=== PATIENT | female | born 1945 | race Caucasian/White ===

== ENCOUNTER 2017-01-02 08:16 | Outpatient (CLI) | payer OTHER ==
[~2017-01-02 08:16] MED LIST: AMLODIPINE BESYL5 MG PO; ASPIRIN EC81 MG PO; ENTERIC COATED325 M1 PO; FERROUS SULFAT324 MG PO; FIBE1 PO; FLONASE AL50 MCG/ACT; HYDROXYZINE PAM25 MG PO; LIDODERM5 % TOP; LISINOPRIL/HYDR1 TA1; LISINOPRIL/HYDR1 TA2 PO; LOVASTATIN20 MG PO; OXYCODONE/ACETA1 TA1 PO; VITAMIN B121000 CR PO; VITAMIN C500 M1 PO
--- NOTE | 2017-01-02 16:04 | DIAGNOSTIC IMAGING REPORT ---
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 Left knee pain. TECHNIQUE: 27 mCi of technetium-99m MDP. Blood flow, blood pool, and delayed static images. COMPARISON: Comparison made radiographs of the left knee from [facility] (12/28/2016) FINDINGS: Blood flow and blood pool images are normal. Delayed static images demonstrate changes consistent with bilateral knee prostheses. There is mild increased uptake in the medial tibial plateau (when compared to the right). Left knee uptake is otherwise normal. Right knee uptake is normal. IMPRESSION: 1. Status post bilateral total knee prostheses. 2. There is mild uptake in the left medial tibial plateau. While this may be a reflection of relatively recent left knee surgery, one might consider the possibility of chronic impaction injury or medial loosening of the tibial prosthesis.
== END 2017-01-02 23:00 ==
LOC: NM SRH 08:16
DX: Z47.1 Aftercare following joint replacement surgery (principal); Z96.653 Presence of artificial knee joint, bilateral
CPT/HCPCS: 90074; 91585; 95059; 95150

== ENCOUNTER 2017-01-31 10:24 | Outpatient (CLI) | payer OTHER ==
--- NOTE | 2017-01-31 12:38 | DIAGNOSTIC IMAGING REPORT ---
PROCEDURE: CT LOWER EXT W/O CONTRAST-LEFT INDICATION: LT KNEE PAIN TECHNIQUE: Axial scans with coronal and sagittal re-formations. COMPARISON: Three-phase bone scan 01/02/2017 and [facility] left knee x-ray 12/28/2016. FINDINGS: There is a left knee arthroplasty. There is no evidence of radiolucency around the medial aspect of the tibial component but there is increased bone sclerosis when compared to the lateral tibial plateau. Prosthesis is intact. No evidence of an occult fracture. IMPRESSION: 1. Left knee arthroplasty without evidence of loosening of the medial tibial component. However, there is increased bony sclerosis which may represent repetitive impaction injury.
--- NOTE | 2017-01-31 12:38 | DIAGNOSTIC IMAGING REPORT ---
PROCEDURE: CT LOWER EXT W/O CONTRAST-LEFT INDICATION: LT KNEE PAIN TECHNIQUE: Axial scans with coronal and sagittal re-formations. COMPARISON: Three-phase bone scan 01/02/2017 and [facility] left knee x-ray 12/28/2016. FINDINGS: There is a left knee arthroplasty. There is no evidence of radiolucency around the medial aspect of the tibial component but there is increased bone sclerosis when compared to the lateral tibial plateau. Prosthesis is intact. No evidence of an occult fracture. IMPRESSION: 1. Left knee arthroplasty without evidence of loosening of the medial tibial component. However, there is increased bony sclerosis which may represent repetitive impaction injury.
== END 2017-01-31 23:00 ==
LOC: CT SRH 10:24
DX: M25.562 Pain in left knee (principal); Z96.652 Presence of left artificial knee joint